=== PATIENT | female | born 1970 | race American Indian/Alaskan Native ===

== ENCOUNTER 2021-01-12 09:55 | Inpatient (IN) | payer BC, MEDICAID ==
--- NOTE | 2021-01-12 11:08 | Emergency Department Report ---
Blank Doc - Documentation Documentation: 50-year-old female that presents with abdominal pain with nausea vomiting. 1- This is a initial triage assessment/medical screening only. Full assessment and work-up will be completed once the patient is in proper hospital gown, ED bed and in a private room setting. This initial assessment/diagnostic orders/clinical plan/ treatment(s) is/are subject to change based on pt's health status, clinical progression and re-assessment by fellow clinical providers in the ED. Further treatment and workup at subsequent clinical providers discretion. Patient/guardians urged not to elope from ED as their condition may be serious if not clinically assessed and managed. 2-labs 3-UA
[2021-01-12 11:43] LABS: Bilirubin,Urine NEG (Negative); Blood,Urine NEG (Negative); Color,Urine Yellow (Yellow); Mucus,Urine FEW /HPF; Urobilinogen,Urine < 2.0 mg/dL (<2.0)
[2021-01-12 11:56] LABS: Protein,Urine <15 mg/dL mg/dL (Negative)
[2021-01-12 12:25] LABS: Basophils % (Auto) 0.4 % (0.0-1.8); Eosinophils # (Auto) 0.1 K/mm3 (0.0-0.4); Eosinophils % (Auto) 0.6 % (0.0-4.3); Hematocrit 39.1 % (30.3-42.9); Hemoglobin 13.1 gm/dl (10.1-14.3); Lymphocytes # (Auto) 0.7 K/mm3 (1.2-5.4); Lymphocytes % (Auto) 8.1 % (13.4-35.0); Mean Corpuscular HGB Conc 34 % (30-34); Mean Corpuscular Volume 88 fl (79-97); Monocytes # (Auto) 0.3 K/mm3 (0.0-0.8); Monocytes % (Auto) 3.5 % (0.0-7.3); Platelet Count 360 K/mm3 (140-440); Red Blood Count 4.44 M/mm3 (3.65-5.03); Red Cell Distribution Width 12.1 % (13.2-15.2)
[2021-01-12 12:46] LABS: Alanine Aminotransferase 20 units/L (7-56); Albumin 4.6 g/dL (3.9-5); Blood Urea Nitrogen 7 mg/dL (7-17); Calcium 10.2 mg/dL (8.4-10.2); Hemolysis Index 9
[2021-01-12 12:50] LABS: BUN/Creatinine Ratio 12
[2021-01-12] MEDS ORDERED: MORPHINE 4 MG/1 ML INJ IV ONE (13:56)
[2021-01-12] MEDS ORDERED: ONDANSETRON 4 MG/2 ML INJ IV ONE (13:56)
--- NOTE | 2021-01-12 14:21 | Emergency Department Report ---
ED General Adult HPI - General Chief complaint: Abdominal Pain Stated complaint: STOMACH PAIN Time Seen by Provider: 01/12/21 11:07 Source: patient Mode of arrival: Ambulatory Limitations: No Limitations - History of Present Illness Initial comments: 50-year-old -Mexican female patient presents with complaints of sudden onset of mid abdominal pain and nausea vomiting starting yesterday. She denies any hematemesis/coffee-ground emesis. She does admit to watery stools without melena or hematochezia. She rates her current pain as a 10/10 in severity and states it comes and goes and lasts for period about 2 minutes at a time. She describes the pain as stabbing and sharp. No prior abdominal surgeries per patient, urinary symptoms, fever/chills/sweats, cough, shortness of breath, or chest pain. She states she had first Covid 19 vaccine done 5 days ago -: Sudden - Related Data Previous Rx's Medication Instructions Recorded Last Taken Type Ibuprofen [Motrin 800 MG tab] 800 mg PO Q8H #30 tablet 04/29/14 Unknown Rx Potassium Chloride 10 meq PO QDAY #3 capsule.er 04/29/14 Unknown Rx Acetaminophen/Codeine [Tylenol 1 tab PO Q6H PRN #12 tab 01/04/16 Unknown Rx /Codeine # 3 tab] Amoxicillin/K Clav Tab [Augmentin 1 tab PO Q12HR #14 tab 01/04/16 Unknown Rx 875 mg] lisinopriL [Zestril TAB] 20 mg PO QDAY #30 tablet 01/04/16 Unknown Rx Allergies Allergy/AdvReac Type Severity Reaction Status Date / Time No Known Allergies Allergy Unverified 04/29/14 17:42 ED Review of Systems ROS: Stated complaint: STOMACH PAIN Other details as noted in HPI Constitutional: denies: chills, diaphoresis, fever, malaise, weakness Respiratory: denies: cough, shortness of breath Cardiovascular: denies: chest pain Gastrointestinal: abdominal pain, nausea, vomiting, diarrhea. denies: const ipation, hematemesis, melena, hematochezia Genitourinary: denies: urgency, dysuria, frequency, hematuria, discharge, abnormal menses, dyspareunia Musculoskeletal: denies: back pain Neurological: denies: headache, numbness, paresthesias Hematological/Lymphatic: denies: easy bleeding ED Past Medical Hx - Past Medical History Previous Medical History?: Yes Hx Hypertension: Yes - Surgical History Past Surgical History?: Yes Additional Surgical History: cysts removed - Social History Smoking Status: Never Smoker Substance Use Type: None - Medications Home Medications: Home Medications Medication Instructions Recorded Confirmed Last Taken Type Ibuprofen [Motrin 800 MG tab] 800 mg PO Q8H #30 tablet 04/29/14 Unknown Rx Potassium Chloride 10 meq PO QDAY #3 capsule.er 04/29/14 Unknown Rx Acetaminophen/Codeine [Tylenol 1 tab PO Q6H PRN #12 tab 01/04/16 Unknown Rx /Codeine # 3 tab] Amoxicillin/K Clav Tab [Augmentin 1 tab PO Q12HR #14 tab 01/04/16 Unknown Rx 875 mg] lisinopriL [Zestril TAB] 20 mg PO QDAY #30 tablet 01/04/16 Unknown Rx ED Physical Exam - General Limitations: No Limitations General appearance: alert, in no apparent distress - Head Head exam: Present: atraumatic, normocephalic - Eye Eye exam: Present: normal appearance - ENT ENT exam: Present: mucous membranes moist - Neck Neck exam: Present: normal inspection - Respiratory Respiratory exam: Present: normal lung sounds bilaterally. Absent: respiratory distress - Cardiovascular Cardiovascular Exam: Present: regular rate, normal rhythm - GI/Abdominal GI/Abdominal exam: Present: soft, normal bowel sounds. Absent: distended, tenderness, guarding, rebound, rigid, mass, pulsatile mass - Extremities Exam Extremities exam: Present: full ROM - Back Exam Back exam: Present: full ROM. Absent: CVA tenderness (R), CVA tenderness (L) - Neurological Exam Neurological exam: Present: alert, oriented X3, normal gait - Psychiatric Psychiatric exam: Present: normal affect, normal mood - Skin Skin exam: Present: warm, dry, intact, normal color. Absent: rash, cyanosis, diaphoretic ED Course Vital Signs 01/12/21 01/12/21 11:04 15:21 Temperature 98.8 F Pulse Rate 106 H Respiratory 18 Rate Blood Pressure 139/87 O2 Sat by Pulse 100 Oximetry ED Medical Decision Making - Lab Data Result diagrams: 01/12/21 12:08 01/12/21 12:08 Lab Results 01/12/21 01/12/21 01/12/21 Range/Units 11:20 12:08 12:08 WBC 9.0 (4.5-11.0) K/mm3 RBC 4.44 (3.65-5.03) M/mm3 Hgb 13.1 (10.1-14.3) gm/dl Hct 39.1 (30.3-42.9) % MCV 88 (79-97) fl MCH 30 (28-32) pg MCHC 34 (30-34) % RDW 12.1 L (13.2-15.2) % Plt Count 360 (140-440) K/mm3 Lymph % (Auto) 8.1 L (13.4-35.0) % [place] % (Auto) 3.5 (0.0-7.3) % Eos % (Auto) 0.6 (0.0-4.3) % Baso % (Auto) 0.4 (0.0-1.8) % Lymph # (Auto) 0.7 L (1.2-5.4) K/mm3 [place] # (Auto) 0.3 (0.0-0.8) K/mm3 Eos # (Auto) 0.1 (0.0-0.4) K/mm3 Baso # (Auto) 0.0 (0.0-0.1) K/mm3 Seg Neutrophils % 87.4 H (40.0-70.0) % Seg Neutrophils # 7.8 H (1.8-7.7) K/mm3 Sodium 133 L (137-145) mmol/L Potassium 3.8 (3.6-5.0) mmol/L Chloride 94.9 L (98-107) mmol/L Carbon Dioxide 24 (22-30) mmol/L Anion Gap 18 mmol/L BUN 7 (7-17) mg/dL Creatinine 0.6 (0.6-1.2) mg/dL Estimated GFR > 60 ml/min BUN/Creatinine Ratio 12 % Glucose 164 H (65-100) mg/dL Calcium 10.2 (8.4-10.2) mg/dL Total Bilirubin 0.40 (0.1-1.2) mg/dL AST 29 (5-40) units/L ALT 20 (7-56) units/L Alkaline Phosphatase 80 (35-129) units/L Total Protein 8.2 (6.3-8.2) g/dL Albumin 4.6 (3.9-5) g/dL Albumin/Globulin Ratio 1.3 % Lipase 176 H (13-60) units/L HCG, Qual (Negative) Urine Color Yellow (Yellow) Urine Turbidity Clear (Clear) Urine pH 5.0 (5.0-7.0) Ur Specific [place] 1.015 (1.003-1.030) Urine Protein <15 mg/dl (Negative) mg/dL Urine Glucose (UA) Neg (Negative) mg/dL Urine Ketones Neg (Negative) mg/dL Urine Blood Neg (Negative) Urine Nitrite Neg (Negative) Urine Bilirubin Neg (Negative) Urine Urobilinogen < 2.0 (<2.0) mg/dL Ur Leukocyte Esterase Neg (Negative) Urine WBC (Auto) 2.0 (0.0-6.0) /HPF Urine RBC (Auto) 2.0 (0.0-6.0) /HPF U Epithel Cells (Auto) < 1.0 (0-13.0) /HPF Urine Mucus Few /HPF /01/26 Range/Units 12:08 WBC (4.5-11.0) K/mm3 RBC (3.65-5.03) M/mm3 Hgb (10.1-14.3) gm/dl Hct (30.3-42.9) % MCV (79-97) fl MCH (28-32) pg MCHC (30-34) % RDW (13.2-15.2) % Plt Count (140-440) K/mm3 Lymph % (Auto) (13.4-35.0) % [place] % (Auto) (0.0-7.3) % Eos % (Auto) (0.0-4.3) % Baso % (Auto) (0.0-1.8) % Lymph # (Auto) (1.2-5.4) K/mm3 [place] # (Auto) (0.0-0.8) K/mm3 Eos # (Auto) (0.0-0.4) K/mm3 Baso # (Auto) (0.0-0.1) K/mm3 Seg Neutrophils % (40.0-70.0) % Seg Neutrophils # (1.8-7.7) K/mm3 Sodium (137-145) mmol/L Potassium (3.6-5.0) mmol/L Chloride (98-107) mmol/L Carbon Dioxide (22-30) mmol/L Anion Gap mmol/L BUN (7-17) mg/dL Creatinine (0.6-1.2) mg/dL Estimated GFR ml/min BUN/Creatinine Ratio % Glucose (65-100) mg/dL Calcium (8.4-10.2) mg/dL Total Bilirubin (0.1-1.2) mg/dL AST (5-40) units/L ALT (7-56) units/L Alkaline Phosphatase (35-129) units/L Total Protein (6.3-8.2) g/dL Albumin (3.9-5) g/dL Albumin/Globulin Ratio % Lipase (13-60) units/L HCG, Qual Negative (Negative) Urine Color (Yellow) Urine Turbidity (Clear) Urine pH (5.0-7.0) Ur Specific [place] (1.003-1.030) Urine Protein (Negative) mg/dL Urine Glucose (UA) (Negative) mg/dL Urine Ketones (Negative) mg/dL Urine Blood (Negative) Urine Nitrite (Negative) Urine Bilirubin (Negative) Urine Urobilinogen (<2.0) mg/dL Ur Leukocyte Esterase (Negative) Urine WBC (Auto) (0.0-6.0) /HPF Urine RBC (Auto) (0.0-6.0) /HPF U Epithel Cells (Auto) (0-13.0) /HPF Urine Mucus /HPF - Medical Decision Making 50-year-old -Mexican female patient presents with complaints of sudden onset of mid abdominal pain and nausea vomiting starting yesterday. She denies any hematemesis/coffee-ground emesis. She does admit to watery stools without melena or hematochezia. She rates her current pain as a 10/10 in severity and states it comes and goes and lasts for period about 2 minutes at a time. She describes the pain as stabbing and sharp. No prior abdominal surgeries per patie nt, urinary symptoms, fever/chills/sweats, cough, shortness of breath, or chest pain. No significant abnormalities noted on CBC or CMP. Lipase is elevated at 176. Patient states she did drink heavily this past weekend for the holiday, but denies regular alcohol use/abuse or history of pancreatitis. CT abdomen shows early mild acute pancreatitis. Discussed patient with Dr. Jones, hospitalist, who will admit patient. Her pain is controlled at this time and no vomiting observed here in ED. Patient is in agreement with admission plan. She is nontoxic-appearing at this time and her vitals are stable. Critical care attestation.: If time is entered above; I have spent that time in minutes in the direct care of this critically ill patient, excluding procedure time. ED Disposition Clinical Impression: Pancreatitis, acute Qualifiers: Pancreatitis type: alcohol induced Disposition: DC-09 OP ADMIT IP TO THIS HOSP Is pt being admited?: Yes Condition: Stable
--- NOTE | 2021-01-12 15:08 | Cat Scan Report ---
CT ABDOMEN AND PELVIS WITH CONTRAST HISTORY: abd pain, elevated lipase 100 ML OMNI 300 COMPARISON: 12/27/2018 TECHNIQUE: Axial CT images were obtained through the abdomen and pelvis after 100 cc of IV contrast. Sagittal and coronal reformatted images. All CT scans at this location are performed using CT dose re duction for ALARA by means of automated exposure control. FINDINGS: CT ABDOMEN: Lung Bases: Clear. Liver: The liver is mildly enlarged with diffuse fatty infiltration. No suspicious liver lesion. Biliary: No significant abnormality. Spleen: No significant abnormality. Unenlarged. Pancreas: There is perhaps minimal fat stranding adjacent to the proximal pancreas. No mass, pseudocy st or advanced inflammatory changes. Adrenals: No significant abnormality. Kidneys: No significant abnormality. Lymphatics: No lymphadenopathy. Vasculature: No significant abnormality. Bowel/Peritoneum: No significant abnormality. No free air. No free fluid. Normal appendix. CT PELVIS: : No significant abnormality. Osseous Structures: No significant abnormality. Additional Findings: None IMPRESSION: Mild hepatomegaly with steatosis. Suggestion of early mild acute pancreatitis as described. Signer Name: Jay Hernandez Jr, MD Signed: 01/12/2021 3:04 PM Workstation Name: [id number]
[2021-01-12] MEDS ORDERED: ACETAMINOPHEN 325 MG TAB PO PRN (15:18)
[2021-01-12] MEDS ORDERED: KETOROLAC 30 MG/1 ML INJ IV ONE (15:18)
[2021-01-12] MEDS ORDERED: ONDANSETRON 4 MG/2 ML INJ IV PRN (15:18)
[2021-01-12] MEDS ORDERED: ALBUTEROL 2.5 MG/3 ML NEBU IH PRN (15:18)
[2021-01-12] MEDS ORDERED: oxyCODONE /ACETAMINOPHEN 5-325MG TAB PO PRN (15:18)
--- NOTE | 2021-01-12 15:20 | History and Physical Report ---
History of Present Illness Chief complaint: My stomach hurts real bad, I am nauseous, and I keep throwing up History of present illness: 50 YO Female with HTN presents to ED for evaluation. Pt reports "my stomach hurts, I am nauseous, and I keep throwing up". Patient states that she has experienced abdominal pain, nausea, multiple episodes of vomiting, over the past 2 days with persistent and worsening symptoms over the same timeframe. Patient states that her pain is 10/10, constant, stabbing, sharp, localized to the epigastric region. Patient also acknowledges decreased oral intake. Patient acknowledges alcohol ingestion on the day prior to onset of symptoms. Patient transported to [facility] via private vehicle for further care and evaluation of the aforementioned symptoms. The patient was seen and evaluated in the emergency department. All lab and imaging studies reviewed. Patient underwent CT scan of the abdomen and pelvis which revealed acute pancreatitis. Patient found to have clinical symptoms consistent with acute pericarditis, intractable nausea and vomiting. Patient admitted to medical floor and treated with IV fluid resuscitation therapy. Patient denies fever, chills, chest pain, palpitation, productive cough, skin rash, recent ill contacts, or known exposure to COVID-19. No prior admission for review. All medication listed at time of admission has been reconciled. Past History Past Medical History: hypertension Past Surgical History: Other (Cyst removal) Social history: single. denies: smoking, alcohol abuse, prescription drug abuse Family history: hypertension Medications and Allergies Allergies Allergy/AdvReac Type Severity Reaction Status Date / Time No Known Allergies Allergy Unverified 04/29/14 17:42 Home Medications Medication Instructions Recorded Confirmed Last Taken Type Ibuprofen [Motrin 800 MG tab] 800 mg PO Q8H #30 tablet 04/29/14 Unknown Rx Potassium Chloride 10 meq PO QDAY #3 capsule.er 04/29/14 Unknown Rx Acetaminophen/Codeine [Tylenol 1 tab PO Q6H PRN #12 tab 01/04/16 Unknown Rx /Codeine # 3 tab] Amoxicillin/K Clav Tab [Augmentin 1 tab PO Q12HR #14 tab 01/04/16 Unknown Rx 875 mg] lisinopriL [Zestril TAB] 20 mg PO QDAY #30 tablet 01/04/16 Unknown Rx Active Meds: Active Medications Acetaminophen (Acetaminophen 325 Mg Tab) 650 mg PO Q4H PRN PRN Reason: Pain MILD(1-3)/Fever >100.5/GU Albuterol (Albuterol 2.5 Mg/3 Ml Nebu) 2.5 mg IH Q4HRT PRN PRN Reason: Shortness Of Breath Sodium Chloride (Nacl 0.9% 1000 Ml) 1,000 mls @ 150 mls/hr IV DIRECT TATA Ondansetron HCl (Ondansetron 4 Mg/2 Ml Inj) 4 mg IV Q8H PRN PRN Reason: Nausea And Vomiting Sodium Chloride (Sodium Chloride 0.9% 10 Ml Flush Syringe) 10 ml IV BID TATA Sodium Chloride (Sodium Chloride 0.9% 10 Ml Flush Syringe) 10 ml IV PRN PRN PRN Reason: LINE FLUSH Review of Systems Constitutional: no weight loss, no weight gain, no fever, no chills Ears, nose, mouth and throat: no ear pain, no ear discharge, no tinnitis, no decreased hearing, no sinus pressure Breasts: no change in shape, no swelling, no mass Cardiovascular: no chest pain, no orthopnea, no palpitations, no edema, no lightheadedness, no shortness of breath Respiratory: no cough, no cough with sputum, no excessive sputum Gastrointestinal: abdominal pain, nausea, vomiting, no change in bowel habits, no hematemesis, no coffee ground emesis, no BRBPR, no melena, no hematochezia, no loss of appetite, no early satiety, no heartburn Genitourinary Female: no pelvic pain, no flank pain, no dysuria, no urinary frequency, no urgency Rectal: no pain, no incontinence, no bleeding Musculoskeletal: no neck stiffness, no neck pain, no low back pain, no leg numbness/tingling Integumentary: no rash, no pruritis, no redness, no sores, no wounds, no jaundice Neurological: no head injury, no transient paralysis, no paralysis, no weakness, no tingling, no ataxia Psychiatric: no anxiety, no memory loss, no change in sleep habits, no insomnia, no change in appetite, no change in libido Endocrine: no cold intolerance, no heat intolerance, no polyphagia, no polydipsia, no polyuria, no excessive sweating Hematologic/Lymphatic: no easy bruising, no easy bleeding, no lymphadenopathy Allergic/Immunologic: no urticaria, no allergic rhinitis, no wheezing, no anaphylaxis, no angioedema Exam - Constitutional Vitals: Temp Pulse Resp BP Pulse Ox 106 H 18 139/87 100 01/12/21 11:04 01/12/21 11:04 01/12/21 11:04 01/12/21 11:04 General appearance: Present: mild distress - EENT Eyes: Present: PERRL ENT: hearing intact, clear oral mucosa - Neck Neck: Present: supple, normal ROM - Respiratory Respiratory effort: normal Respiratory: bilateral: CTA - Cardiovascular Heart Sounds: Present: S1 & S2. Absent: rub, click - Extremities Extremities: pulses symmetrical, No edema Peripheral Pulses: within normal limits - Abdominal General gastrointestinal: Present: soft, non-tender, tender, non-distended, normal bowel sounds Localized gastrointestinal: tender: epigastric periumbilical Female genitourinary: Present: normal - Rectal Rectal Exam: normal exam-external/orifice, normal rectal tone - Integumentary Integumentary: Present: clear, warm, dry - Musculoskeletal Musculoskeletal: gait normal, strength equal bilaterally - Psychiatric Psychiatric: appropriate mood/affect, intact judgment & insight - Neurologic Neurologic: CNII-XII intact, moves all extremities Results - Labs CBC & Chem 7: 01/12/21 12:08 01/12/21 12:08 Labs: Abnormal lab results 01/12/21 01/12/21 Range/Units 12:08 12:08 RDW 12.1 L (13.2-15.2) % Lymph % (Auto) 8.1 L (13.4-35.0) % Lymph # (Auto) 0.7 L (1.2-5.4) K/mm3 Seg Neutrophils % 87.4 H (40.0-70.0) % Seg Neutrophils # 7.8 H (1.8-7.7) K/mm3 Sodium 133 L (137-145) mmol/L Chloride 94.9 L (98-107) mmol/L Glucose 164 H (65-100) mg/dL Lipase 176 H (13-60) units/L Assessment and Plan - Patient Problems (1) Acute pancreatitis Current Visit: Yes Status: Acute Qualifiers: Pancreatitis type: alcohol induced Plan to address problem: CT scan abdomen and pelvis, serial abdominal exam, IV fluid resuscitation therapy, bowel rest, pain control, lipase level, repeat lipase level in a.m. (2) Hypertension Current Visit: Yes Status: Acute Qualifiers: Hypertension type: primary hypertension Qualified Code(s): I10 - Essential (primary) hypertension Plan to address problem: Monitor blood pressure every shift, continue medical management (3) Intractable nausea and vomiting Current Visit: Yes Status: Acute Plan to address problem: Antiemetic therapy, Zofran every 8 hours as needed, bowel rest, IV fluid resuscitation therapy. (4) DVT prophylaxis Current Visit: Yes Status: Acute Plan to address problem: SCD to bilateral lower extremities while in bed, patient is ambulatory.
[2021-01-12] MEDS: SODIUM CHLORIDE 0.9% 1000 ML 1,000 ML IV SCH ×2 (18:16→21:53)
[2021-01-12] MEDS: MORPHINE 4 MG/1 ML INJ IV PRN (21:53)
[2021-01-13] MEDS: MORPHINE 4 MG/1 ML INJ IV PRN ×2 (04:24→12:41)
[2021-01-13 07:37] LABS: Alanine Aminotransferase 16 units/L (7-56); Blood Urea Nitrogen 8 mg/dL (7-17); Calcium 9.3 mg/dL (8.4-10.2); Hemolysis Index 9
[2021-01-13 07:45] LABS: BUN/Creatinine Ratio 13
[2021-01-13] MEDS: LISINOPRIL 20 MG TAB PO SCH (08:45)
[2021-01-13] MEDS: SODIUM CHLORIDE 0.9% 1000 ML 1,000 ML IV SCH ×2 (08:45→23:57)
--- NOTE | 2021-01-13 12:34 | Progress Note ---
Assessment and Plan Assessment and plan: -- Acute pancreatitis Current Visit: Yes Status: Acute CT scan abdomen and pelvis, ;Mild hepatomegaly with steatosis suggests early mild acute pancreatitis N.p.o. status, pain medications, IV fluids, trend lipase and LFTs Check abdominal ultrasound to evaluate gallbladder/gallstones GI consult if needed Clear liquids if patient tolerates --Hypokalemia: Replenished per protocol Monitor electrolytes -- Hypertension Current Visit: Yes Status: Acute Monitor blood pressure every shift, continue medical management. As needed hydralazine -- Intractable nausea and vomiting Current Visit: Yes Status: Acute Antiemetic therapy, Zofran every 8 hours as needed, bowel rest, IV fluid resuscitation therapy. --DVT prophylaxis Current Visit: Yes Status: Acute SCD to bilateral lower extremities while in bed, patient is ambulatory. We will closely monitor the patient and adjust the management as needed Plan of care reviewed with the patient and her nurse Possible discharge in 1 to 2 days if stable Check abdominal ultrasound tomorrow morning History Interval history: I have seen and examined the patient at the bedside this afternoon Patient's chart and medications reviewed Patient complains of vague abdominal pain Admitted with acute pancreatitis Vital signs noted Hospitalist Physical - Constitutional Vitals: Temp Pulse Resp BP Pulse Ox 99.0 F 90 18 140/82 100 01/13/21 11:36 01/13/21 11:36 01/13/21 11:36 01/13/21 11:36 01/13/21 11:36 General appearance: Present: mild distress, well-nourished - EENT Eyes: Present: PERRL, EOM intact - Neck Neck: Present: supple, normal ROM - Respiratory Respiratory effort: normal Respiratory: bilateral: diminished, negative: rales, rhonchi, wheezing - Cardiovascular Rhythm: regular Heart Sounds: Present: S1 & S2 - Extremities Extremities: no ischemia, No edema - Abdominal General gastrointestinal: soft, tender (Vague tenderness no guarding no rigidity), non-distended, normal bowel sounds - Integumentary Integumentary: Present: clear, warm - Psychiatric Psychiatric: appropriate mood/affect, cooperative - Neurologic Neurologic: CNII-XII intact, moves all extremities Results - Labs CBC & Chem 7: 01/12/21 12:08 01/13/21 06:45 Labs: Laboratory Last Values WBC 9.0 K/mm3 (4.5-11.0) 01/12/21 12:08 RBC 4.44 M/mm3 (3.65-5.03) 01/12/21 12:08 Hgb 13.1 gm/dl (10.1-14.3) 01/12/21 12:08 Hct 39.1 % (30.3-42.9) 01/12/21 12:08 MCV 88 fl (79-97) 01/12/21 12:08 MCH 30 pg (28-32) 01/12/21 12:08 MCHC 34 % (30-34) 01/12/21 12:08 RDW 12.1 % (13.2-15.2) L 01/12/21 12:08 Plt Count 360 K/mm3 (140-440) 01/12/21 12:08 Lymph % (Auto) 8.1 % (13.4-35.0) L 01/12/21 12:08 [place] % (Auto) 3.5 % (0.0-7.3) 01/12/21 12:08 Eos % (Auto) 0.6 % (0.0-4.3) 01/12/21 12:08 Baso % (Auto) 0.4 % (0.0-1.8) 01/12/21 12:08 Lymph # (Auto) 0.7 K/mm3 (1.2-5.4) L 01/12/21 12:08 [place] # (Auto) 0.3 K/mm3 (0.0-0.8) 01/12/21 12:08 Eos # (Auto) 0.1 K/mm3 (0.0-0.4) 01/12/21 12:08 Baso # (Auto) 0.0 K/mm3 (0.0-0.1) 01/12/21 12:08 Seg Neutrophils % 87.4 % (40.0-70.0) H 01/12/21 12:08 Seg Neutrophils # 7.8 K/mm3 (1.8-7.7) H 01/12/21 12:08 Sodium 138 mmol/L (137-145) 01/13/21 06:45 Potassium 3.5 mmol/L (3.6-5.0) L 01/13/21 06:45 Chloride 100.9 mmol/L (98-107) 01/13/21 06:45 Carbon Dioxide 26 mmol/L (22-30) 01/13/21 06:45 Anion Gap 15 mmol/L 01/13/21 06:45 BUN 8 mg/dL (7-17) 01/13/21 06:45 Creatinine 0.6 mg/dL (0.6-1.2) 01/13/21 06:45 Estimated GFR > 60 ml/min 01/13/21 06:45 BUN/Creatinine Ratio 13 % 01/13/21 06:45 Glucose 125 mg/dL (65-100) H 01/13/21 06:45 Calcium 9.3 mg/dL (8.4-10.2) 01/13/21 06:45 Total Bilirubin 0.30 mg/dL (0.1-1.2) 01/13/21 06:45 AST 23 units/L (5-40) 01/13/21 06:45 ALT 16 units/L (7-56) 01/13/21 06:45 Alkaline Phosphatase 62 units/L (35-129) 01/13/21 06:45 Total Protein 7.0 g/dL (6.3-8.2) 01/13/21 06:45 Albumin 4.0 g/dL (3.9-5) 01/13/21 06:45 Albumin/Globulin Ratio 1.3 % 01/13/21 06:45 Lipase 176 units/L (13-60) H 01/12/21 12:08 HCG, Qual Negative (Negative) 01/12/21 12:08 Urine Color Yellow (Yellow) 01/12/21 11:20 Urine Turbidity Clear (Clear) 01/12/21 11:20 Urine pH 5.0 (5.0-7.0) 01/12/21 11:20 Ur Specific [place] 1.015 (1.003-1.030) 01/12/21 11:20 Urine Protein <15 mg/dl mg/dL (Negative) 01/12/21 11:20 Urine Glucose (UA) Neg mg/dL (Negative) 01/12/21 11:20 Urine Ketones Neg mg/dL (Negative) 01/12/21 11:20 Urine Blood Neg (Negative) 01/12/21 11:20 Urine Nitrite Neg (Negative) 01/12/21 11:20 Urine Bilirubin Neg (Negative) 01/12/21 11:20 Urine Urobilinogen < 2.0 mg/dL (<2.0) 01/12/21 11:20 Ur Leukocyte Esterase Neg (Negative) 01/12/21 11:20 Urine WBC (Auto) 2.0 /HPF (0.0-6.0) 01/12/21 11:20 Urine RBC (Auto) 2.0 /HPF (0.0-6.0) 01/12/21 11:20 U Epithel Cells (Auto) < 1.0 /HPF (0-13.0) 01/12/21 11:20 Urine Mucus Few /HPF 01/12/21 11:20 Davila/IV: Voiding Method Toilet Active Medications - Current Medications Current Medications: Generic Name Dose Route Start Last Admin Trade Name Freq PRN Reason Stop Dose Admin Acetaminophen 650 mg 01/12/21 15:18 Acetaminophen 325 Mg Tab PO Q4H PRN Pain MILD(1-3)/Fever >100.5/GU Albuterol 2.5 mg 01/12/21 15:18 Albuterol 2.5 Mg/3 Ml Nebu IH Q4HRT PRN Shortness Of Breath Sodium Chloride 1,000 mls @ 150 mls/hr 01/12/21 15:30 01/13/21 08:45 Nacl 0.9% 1000 Ml IV 150 mls/hr DIRECT TATA Administration Lisinopril 20 mg 01/13/21 08:00 01/13/21 08:45 Lisinopril 20 Mg Tab PO 20 mg QDAY TATA Administration Morphine Sulfate 2 mg 01/12/21 15:18 01/13/21 04:24 Morphine 4 Mg/1 Ml Inj IV 2 mg Q6H PRN Administration Pain , Severe (7-10) Ondansetron HCl 4 mg 01/12/21 15:18 Ondansetron 4 Mg/2 Ml Inj IV Q8H PRN Nausea And Vomiting Oxycodone/Acetaminophen 1 tab 01/12/21 15:18 Oxycodone /Acetaminophen 5-325mg Tab PO Q6H PRN Pain, Moderate (4-6) Sodium Chloride 10 ml 01/12/21 22:00 01/13/21 08:50 Sodium Chloride 0.9% 10 Ml Flush Syringe IV Not Given BID TTAA Sodium Chloride 10 ml 01/12/21 15:18 Sodium Chloride 0.9% 10 Ml Flush Syringe IV PRN PRN LINE FLUSH
[2021-01-14 08:01] VITALS: BP 115/72
[2021-01-14] MEDS: LISINOPRIL 20 MG TAB PO SCH (08:46)
--- NOTE | 2021-01-14 11:56 | Discharge Summary ---
Providers - Providers Date of Admission: 01/12/21 15:18 Date of discharge: 01/14/21 Attending physician: BETTY HATCH Primary care physician: [facility] Hospitalization Reason for admission: Intractable nausea vomiting abdominal pain/acute pancreatitis Condition: Stable Pertinent studies: CT scan abdomen and pelvis, ;Mild hepatomegaly with steatosis suggests early mild acute pancreatitis Hospital course: 50 YO Female with HTN presents to ED for evaluation. Pt reports "my stomach hurts, I am nauseous, and I keep throwing up". Patient states that she has experienced abdominal pain, nausea, multiple episodes of vomiting, over the past 2 days with persistent and worsening symptoms over the same timeframe. Patient states that her pain is 10/10, constant, stabbing, sharp, localized to the epigastric region. Patient also acknowledges decreased oral intake. Patient acknowledges alcohol ingestion on the day prior to onset of symptoms. Patient transported to [facility] via private vehicle for further care and evaluation of the aforementioned symptoms. The patient was seen and evaluated in the emergency department. All lab and imaging studies reviewed. Patient underwent CT scan of the abdomen and pelvis which revealed acute pancreatitis. Patient found to have clinical symptoms consistent with acute pericarditis, intractable nausea and vomiting. Patient admitted to medical floor and treated with IV fluid resuscitation therapy. Patient denies fever, chills, chest pain, palpitation, productive cough, skin rash, recent ill contacts, or known exposure to COVID-19. No prior admission for review. All medication listed at time of admission has been reconciled. Patient was noted to have acute pancreatitis, placed n.p.o. status, symptomatically managed, her symptoms improved Started on clear liquids and advance the diet, liver function tests within normal limits, pancreatic enzymes slowly trended down to baseline normal levels Today patient is comfortable no new complaints vital signs stable Physical examination prior to discharge is unremarkable Patient is hemodynamically and clinically stable at discharge Discharge diagnosis; -- Acute pancreatitis Current Visit: Yes Status: Acute CT scan abdomen and pelvis, ;Mild hepatomegaly with steatosis suggests early mild acute pancreatitis N.p.o. status, pain medications, IV fluids, trend lipase and LFTs Check abdominal ultrasound to evaluate gallbladder/gallstones GI consult if needed Clear liquids if patient tolerates --Hypokalemia: Replenished per protocol Monitor electrolytes --Hyponatremia[mild]; present on admission Sodium levels 133 [01/12/2021] Received normal saline IV fluids Sodium level significantly improved to normal range Closely monitor electrolyte -- Hypertension Current Visit: Yes Status: Acute Monitor blood pressure every shift, continue medical management. As needed hydralazine -- Intractable nausea and vomiting Current Visit: Yes Status: Acute Antiemetic therapy, Zofran every 8 hours as needed, bowel rest, IV fluid resuscitation therapy. Disposition: DC-01 TO HOME OR SELFCARE Final Discharge Diagnosis (Prints w/discharge instructions): Acute pancreatitis/resolved. Hypokalemia/resolved. Hypertension. Intractable nausea vomiting/resolved Time spent for discharge: 35 min Core Measure Documentation - Palliative Care Palliative Care/ Comfort Measures: Not Applicable - Core Measures Any of the following diagnoses?: none Exam - Constitutional Vitals: Temp Pulse Resp BP Pulse Ox 98.7 F 87 18 115/72 88 01/14/21 07:54 01/14/21 07:54 01/14/21 07:54 01/14/21 07:54 01/14/21 07:54 General appearance: Present: no acute distress, well-nourished - EENT Eyes: Present: PERRL, EOM intact - Neck Neck: Present: supple, normal ROM - Respiratory Respiratory effort: normal Respiratory: bilateral: diminished, negative: rales, rhonchi, wheezing - Cardiovascular Rhythm: regular Heart Sounds: Present: S1 & S2 - Extremities Extremities: no ischemia, No edema - Abdominal General gastrointestinal: Present: soft, non-tender, non-distended, normal bowel sounds - Integumentary Integumentary: Present: clear, warm - Musculoskeletal Musculoskeletal: strength equal bilaterally - Psychiatric Psychiatric: appropriate mood/affect, cooperative - Neurologic Neurologic: moves all extremities Plan Activity: no restrictions Diet: regular Additional Instructions: If you have worsening symptoms contact MD or go to emergency room as needed. Advised to see private GI if you have persistent abdominal pain Follow up with: PRIMARY CAREMD [Primary Care Provider] - 3-5 Days GAVINO COOK MD [Staff Physician] - 7 Days Prescriptions: Pantoprazole [Protonix TAB] 20 mg PO DAILY 14 Days #14 tablet.
== END 2021-01-14 13:07 | disposition home or self-care (01) | DRG 439 ==
LOC: ED 09:55 → 3A 15:18 → 3B 16:43 → 3A 01-14 11:45 → 3B 01-14 11:50
PROVIDERS: ADMIT Internal Medicine; ATTEND Internal Medicine
DX: K85.20 Alcohol induced acute pancreatitis without necrosis or infection (principal); E87.1 Hypo-osmolality and hyponatremia; I30.9 Acute pericarditis, unspecified; I10 Essential (primary) hypertension; R16.0 Hepatomegaly, not elsewhere classified; E87.6 Hypokalemia; Z82.49 Family history of ischemic heart disease and other diseases of the circulatory system; Z79.899 Other long term (current) drug therapy
CPT/HCPCS: 36415; 74177; 80053; 81001; 83690; 84703; 85025; 96374; 96375; G0378; J1885; J2270; J2405; J7030; Q9967